=== PATIENT | female | born 1970 | race American Indian/Alaskan Native ===

== ENCOUNTER 2020-02-15 09:11 | Emergency (ER) | payer MEDICAID, OTHER ==
[2020-02-15] MEDS ORDERED: METOCLOPRAMIDE 10 MG/2 ML INJ IV ONE (09:50)
[2020-02-15] MEDS ORDERED: SODIUM CHLORIDE 0.9% 1000 ML 1,000 ML IV ONE (09:50)
[2020-02-15] MEDS ORDERED: PANTOPRAZOLE 40 MG INJ IV ONE (09:50)
[2020-02-15] MEDS ORDERED: KETOROLAC 30 MG/1 ML INJ IV ONE (09:50)
--- NOTE | 2020-02-15 10:00 | Emergency Department Report ---
ED Abdominal Pain HPI - General Chief Complaint: Abdominal Pain Stated Complaint: SOB Time Seen by Provider: 02/15/20 09:36 Source: patient Mode of arrival: Ambulatory Limitations: Other - History of Present Illness Initial Comments: This is a 50-year-old female with a history of diabetes supposed to be taking metformin twice a day who presents the ED complaining of left upper abdominal cramping aching type pain and vomiting x2 weeks. Patient states symptoms started about 2 weeks ago. Patient states she usually vomits daily sometimes once a day or several times a day. Patient states that symptoms sometimes worsen with food. She states that she is able to eat but most times may vomit after a couple of hours of eating. Patient also states that she is being a B week due to not being able to keep foods down. Patient states she is worse with taking metformin twice a day but does not really take it like she should. Patient states she has an appointment next month with her primary care physician for her new diagnosis of hypertension. She denies fever/chills, chest pain, diarrhea, MD Complaint: abdominal pain -: week(s) (2) Location: [facility] Migration to: no migration Severity: moderate Severity scale (0 -10): 6 Quality: aching Worsens With: eating, vomiting Associated Symptoms: nausea, vomiting. denies: diarrhea, fever, dysuria - Related Data Home Medications Medication Instructions Recorded Confirmed Last Taken Sitagliptin Phosphate [Januvia] 100 mg PO QDAY 07/16/19 07/16/19 Unknown Previous Rx's Medication Instructions Recorded Last Taken Type AtorvaSTATin [Lipitor] 40 mg PO QHS #30 tablet 07/18/19 Unknown Rx Glimepiride [Amaryl] 2 mg PO QDDIAB #30 tablet 07/18/19 Unknown Rx Insulin NPH/Regular [NovoLIN 70/30] 5 unit SQ BIDDIAB #10 ml 07/18/19 Unknown Rx Meclizine [Antivert] 12.5 mg PO Q12H PRN #10 tablet 07/18/19 Unknown Rx amLODIPine 10 mg PO QDAY #30 tablet 07/18/19 Unknown Rx carvediloL [Coreg] 12.5 mg PO BID #60 tablet 07/18/19 Unknown Rx Famotidine [Pepcid] 20 mg PO BID #30 tablet 02/15/20 Unknown Rx Metoclopramide [Reglan] 10 mg PO TID #30 tab 02/15/20 Unknown Rx Nitrofurantoin Rhea/M-Cryst 100 mg PO Q12HR #10 capsule 02/15/20 Unknown Rx [Macrobid CAP] metFORMIN XR [Glucophage XR] 1,000 mg PO QDDIAB #60 tablet 02/15/20 Unknown Rx traMADoL [Ultram 50 MG tab] 50 mg PO Q6HR PRN #20 tablet 02/15/20 Unknown Rx Allergies Allergy/AdvReac Type Severity Reaction Status Date / Time No Known Allergies Allergy Verified 02/15/20 09:12 ED Review of Systems ROS: Stated complaint: SOB Other details as noted in HPI Comment: All other systems reviewed and negative ED Past Medical Hx - Past Medical History Hx Hypertension: Yes (newly diagnosed this admission.) Hx Diabetes: Yes Hx Renal Disease: No Additional medical history: blind - Surgical History Additional Surgical History: x 2 - Social History Smoking Status: Never Smoker Substance Use Type: None - Medications Home Medications: Home Medications Medication Instructions Recorded Confirmed Last Taken Type Sitagliptin Phosphate [Januvia] 100 mg PO QDAY 07/16/19 07/16/19 Unknown History AtorvaSTATin [Lipitor] 40 mg PO QHS #30 tablet 07/18/19 Unknown Rx Glimepiride [Amaryl] 2 mg PO QDDIAB #30 tablet 07/18/19 Unknown Rx Insulin NPH/Regular [NovoLIN 70/30] 5 unit SQ BIDDIAB #10 ml 07/18/19 Unknown Rx Meclizine [Antivert] 12.5 mg PO Q12H PRN #10 tablet 07/18/19 Unknown Rx amLODIPine 10 mg PO QDAY #30 tablet 07/18/19 Unknown Rx carvediloL [Coreg] 12.5 mg PO BID #60 tablet 07/18/19 Unknown Rx Famotidine [Pepcid] 20 mg PO BID #30 tablet 02/15/20 Unknown Rx Metoclopramide [Reglan] 10 mg PO TID #30 tab 02/15/20 Unknown Rx Nitrofurantoin Rhea/M-Cryst 100 mg PO Q12HR #10 capsule 02/15/20 Unknown Rx [Macrobid CAP] metFORMIN XR [Glucophage XR] 1,000 mg PO QDDIAB #60 tablet 02/15/20 Unknown Rx traMADoL [Ultram 50 MG tab] 50 mg PO Q6HR PRN #20 tablet 02/15/20 Unknown Rx ED Physical Exam - General Limitations: Other General appearance: alert, in no apparent distress - Head Head exam: Present: atraumatic, normocephalic - Eye Eye exam: Present: normal appearance - ENT ENT exam: Present: mucous membranes moist - Neck Neck exam: Present: normal inspection - Respiratory Respiratory exam: Present: normal lung sounds bilaterally. Absent: respiratory distress - Cardiovascular Cardiovascular Exam: Present: regular rate, normal rhythm. Absent: systolic murmur, diastolic murmur, rubs, gallop - GI/Abdominal GI/Abdominal exam: Present: soft, tenderness (To palpation of the left upper quadrant), normal bowel sounds, other (Patient was nontender in all other quadrant). Absent: distended, rigid, organomegaly, mass, bruit, pulsatile mass - Expanded GI/Abdominal Exam Expanded GI/Abdominal exam: Absent: psoas sign, obturator sign - Extremities Exam Extremities exam: Present: normal inspection - Back Exam Back exam: Present: normal inspection - Neurological Exam Neurological exam: Present: alert, oriented X3 - Psychiatric Psychiatric exam: Present: normal affect, normal mood - Skin Skin exam: Present: warm, dry, intact, normal color. Absent: rash ED Course Vital Signs 02/15/20 02/15/20 09:16 10:16 Temperature 97.5 F L Pulse Rate 109 H Respiratory 18 18 Rate Blood Pressure 150/80 O2 Sat by Pulse 99 Oximetry ED Medical Decision Making - Lab Data Result diagrams: 02/15/20 09:48 02/15/20 09:48 - Radiology Data Radiology results: report reviewed, image reviewed Loc: ED Attending Dr: ULTRASOUND ABDOMEN, COMPLETE INDICATION: Abdominal Pain. COMPARISON: No relevant prior imaging study available. FINDINGS: Pancreas: No significant abnormality. Abdominal Aorta: No significant abnormality. IVC: No significant abnormality. Liver: The liver measures 13.9 cm in length. No significant abnormality. Normal hepatopedal blood flow in the main portal vein. Gallbladder: Multiple gallstones without distention or significant wall thickening. Negative sonographic Castrejon's sign.. Bile ducts: No significant abnormality. Common bile duct measures 4 mm. Right kidney: 9.8 cm in length. No significant abnormality. Left kidney: 10.1 cm in length. No significant abnormality. Spleen: No significant abnormality. Free fluid: None. Additional Findings: None. IMPRESSION: 1. Cholelithiasis without sonographic evidence of acute cholecystitis. Signer Name: Jimenez Matthews MD Signed: 02/15/2020 10:44 AM Workstation Name: [id number] Transcribed By: BERNARD Dictated By: Jimenez Matthews MD Electronically Authenticated By: Jimenez Matthews MD Signed Date/Time: 02/15/20 1044 - Medical Decision Making This 50-year-old female presents with abdominal pain secondary to Patient received pain medication, 1 L of fluids and some antiemetic medications. Abdominal ultrasound shows, see report above. Discussed findings with the patient. All labs within normal limits patient had no leukocytosis or any liver function abnormalities or kidney function abnormalities. Discussed with patient to follow-up with laser engineer in the next 2 to 3 days. Critical care attestation.: If time is entered above; I have spent that time in minutes in the direct care of this critically ill patient, excluding procedure time. ED Disposition Clinical Impression: Cholelithiasis, Abdominal pain Disposition: DC- TO HOME OR SELFCARE Is pt being admited?: No Does the pt Need Aspirin: No Condition: Stable Instructions: Abdominal Pain (ED), Cholelithiasis (ED), Biliary Colic (ED) Additional Instructions: Make sure to follow up with the primary care physician as discussed. Take all your medications as you've been prescribed. If you have any worsening symptoms or develop new symptoms please return to ED immediately. Prescriptions: metFORMIN XR [Glucophage XR] 1,000 mg PO QDDIAB #60 tablet Nitrofurantoin Rhea/M-Cryst [Macrobid CAP] 100 mg PO Q12HR #10 capsule Famotidine [Pepcid] 20 mg PO BID #30 tablet Metoclopramide [Reglan] 10 mg PO TID #30 tab traMADoL [Ultram 50 MG tab] 50 mg PO Q6HR PRN #20 tablet PRN Reason: Pain Referrals: PRIMARY CARE, [Referring] - 3-5 Days [facility] [Provider Group] - 3-5 Days [facility] [Provider Group] - 3-5 Days Forms: Accompanied Note, Work/School Release Form(ED) Time of Disposition: 11:20
[2020-02-15 10:11] LABS: Basophils # (Auto) 0.1 K/mm3 (0.0-0.1); Basophils % (Auto) 0.9 % (0.0-1.8); Eosinophils # (Auto) 0.1 K/mm3 (0.0-0.4); Hematocrit 34.7 % (30.3-42.9); Hemoglobin 11.6 gm/dl (10.1-14.3); Lymphocytes # (Auto) 2.3 K/mm3 (1.2-5.4); Lymphocytes % (Auto) 25.9 % (13.4-35.0); Mean Corpuscular HGB Conc 33 % (30-34); Mean Corpuscular Volume 87 fl (79-97); Monocytes # (Auto) 0.6 K/mm3 (0.0-0.8); Monocytes % (Auto) 6.1 % (0.0-7.3); Platelet Count 199 K/mm3 (140-440); Red Blood Count 3.98 M/mm3 (3.65-5.03); Red Cell Distribution Width 12.4 % (13.2-15.2)
[2020-02-15 10:34] LABS: Bacteria,Urine 4+ /HPF (Negative); Bilirubin,Urine NEG (Negative); Blood,Urine SM (Negative); Color,Urine Yellow (Yellow); Hyaline Casts,Urine 3 /LPF; Mucus,Urine FEW /HPF; Urobilinogen,Urine < 2.0 mg/dL (<2.0)
[2020-02-15 10:41] LABS: Albumin 3.6 g/dL (3.9-5); Calcium 9.9 mg/dL (8.4-10.2)
--- NOTE | 2020-02-15 10:48 | Ultrasound Report ---
ULTRASOUND ABDOMEN, COMPLETE INDICATION: Abdominal Pain. COMPARISON: No relevant prior imaging study available. FINDINGS: Pancreas: No significant abnormality. Abdominal Aorta: No significant abnormality. IVC: No significant abnormality. Liver: The liver measures 13.9 cm in length. No significant abnormality. Normal hepatopedal blood sissy w in the main portal vein. Gallbladder: Multiple gallstones without distention or significant wall thickening. Negative sonograp hic Castrejon's sign.. Bile ducts: No significant abnormality. Common bile duct measures 4 mm. Right kidney: 9.8 cm in length. No significant abnormality. Left kidney: 10.1 cm in length. No significant abnormality. Spleen: No significant abnormality. Free fluid: None. Additional Findings: None. IMPRESSION: 1. Cholelithiasis without sonographic evidence of acute cholecystitis. Signer Name: Jimenez Matthews MD Signed: 02/15/2020 10:44 AM Workstation Name: [id number]
[2020-02-15 11:39] VITALS: BP 132/70
== END 2020-02-15 11:39 | disposition home or self-care (01) ==
LOC: ED 09:11
DX: K80.20 Calculus of gallbladder without cholecystitis without obstruction (principal); R10.12 Left upper quadrant pain; R11.2 Nausea with vomiting, unspecified; I10 Essential (primary) hypertension; E11.9 Type 2 diabetes mellitus without complications; Z98.890 Other specified postprocedural states; Z79.4 Long term (current) use of insulin; Z79.899 Other long term (current) drug therapy
CPT/HCPCS: 36415; 76700; 80053; 81001; 82150; 83690; 84702; 85025; 87086; 96361; 96374; 96375; 99284; C9113; J1885; J2765; J7030

== ENCOUNTER 2020-03-22 09:35 | Emergency (ER) | payer MEDICAID ==
[2020-03-22] MEDS ORDERED: SODIUM CHLORIDE 0.9% 1000 ML 1,000 ML IV ONE (10:32)
[2020-03-22] MEDS ORDERED: DICYCLOMINE 20 MG/2 ML INJ IM ONE (10:32)
--- NOTE | 2020-03-22 10:53 | Emergency Department Report ---
ED General Adult HPI - General Chief complaint: Upper Respiratory Infection Stated complaint: COUGH/DIARRHEA PUI?: Yes Time Seen by Provider: 03/22/20 10:19 Source: patient Mode of arrival: Ambulatory Limitations: No Limitations - History of Present Illness Initial comments: Patient is a 50-year-old F Lithuanian female who is presenting with multiple complaints. Patient states that she has had a cough with mild shortness of maite ath and decreased exercise tolerance for approximately 2 weeks. States the cough is dry and nonproductive. States that she has not had a fever sore throat neck stiffness or body aches. Patient also is stating that she has had also 2 weeks of diarrhea. Patient states she is blind so she does not know whether there is been blood in her stool. She has crampy colicky diffuse abdominal pain especially before having the bowel movements. She denies any near syncope with standing. Lastly the patient states for approximately a week she has been having some weakness to her right lower extremity. She states that when she stands she has to lean more on her left leg in order to get up. She has d ifficulty with walking is been walking with a limp. 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 She has a history of hypertension. Patient denies any other focal neurological symptoms. - Related Data Home Medications Medication Instructions Recorded Confirmed Last Taken Sitagliptin Phosphate [Januvia] 100 mg PO QDAY 07/16/19 07/16/19 Unknown Previous Rx's Medication Instructions Recorded Last Taken Type AtorvaSTATin [Lipitor] 40 mg PO QHS #30 tablet 07/18/19 Unknown Rx Glimepiride [Amaryl] 2 mg PO QDDIAB #30 tablet 07/18/19 Unknown Rx Insulin NPH/Regular [NovoLIN 70/30] 5 unit SQ BIDDIAB #10 ml 07/18/19 Unknown Rx Meclizine [Antivert] 12.5 mg PO Q12H PRN #10 tablet 07/18/19 Unknown Rx amLODIPine 10 mg PO QDAY #30 tablet 07/18/19 Unknown Rx carvediloL [Coreg] 12.5 mg PO BID #60 tablet 07/18/19 Unknown Rx Famotidine [Pepcid] 20 mg PO BID #30 tablet 02/15/20 Unknown Rx Metoclopramide [Reglan] 10 mg PO TID #30 tab 02/15/20 Unknown Rx Nitrofurantoin Dooly/M-Cryst 100 mg PO Q12HR #10 capsule 02/15/20 Unknown Rx [Macrobid CAP] metFORMIN XR [Glucophage XR] 1,000 mg PO QDDIAB #60 tablet 02/15/20 Unknown Rx traMADoL [Ultram 50 MG tab] 50 mg PO Q6HR PRN #20 tablet 02/15/20 Unknown Rx Dicyclomine [Bentyl] 10 mg PO QID #10 capsule 03/22/20 Unknown Rx Diphenoxylate/Atropine [Lomotil] 1 tab PO Q4H PRN #10 tablet 03/22/20 Unknown Rx Furosemide [Lasix] 20 mg PO QDAY #14 tablet 03/22/20 Unknown Rx Allergies Allergy/AdvReac Type Severity Reaction Status Date / Time No Known Allergies Allergy Verified 02/15/20 09:12 ED Review of Systems ROS: Stated complaint: COUGH/DIARRHEA Other details as noted in HPI Comment: All other systems reviewed and negative ED Past Medical Hx - Past Medical History Previous Medical History?: Yes Hx Hypertension: Yes (newly diagnosed this admission.) Hx Diabetes: Yes Hx Renal Disease: No Additional medical history: blind - Surgical History Past Surgical History?: Yes Additional Surgical History: x 2 - Social History Smoking Status: Never Smoker Substance Use Type: None - Medications Home Medications: Home Medications Medication Instructions Recorded Confirmed Last Taken Type Sitagliptin Phosphate [Januvia] 100 mg PO QDAY 07/16/19 07/16/19 Unknown History AtorvaSTATin [Lipitor] 40 mg PO QHS #30 tablet 07/18/19 Unknown Rx Glimepiride [Amaryl] 2 mg PO QDDIAB #30 tablet 07/18/19 Unknown Rx Insulin NPH/Regular [NovoLIN 70/30] 5 unit SQ BIDDIAB #10 ml 07/18/19 Unknown Rx Meclizine [Antivert] 12.5 mg PO Q12H PRN #10 tablet 07/18/19 Unknown Rx amLODIPine 10 mg PO QDAY #30 tablet 07/18/19 Unknown Rx carvediloL [Coreg] 12.5 mg PO BID #60 tablet 07/18/19 Unknown Rx Famotidine [Pepcid] 20 mg PO BID #30 tablet 02/15/20 Unknown Rx Metoclopramide [Reglan] 10 mg PO TID #30 tab 02/15/20 Unknown Rx Nitrofurantoin Dooly/M-Cryst 100 mg PO Q12HR #10 capsule 02/15/20 Unknown Rx [Macrobid CAP] metFORMIN XR [Glucophage XR] 1,000 mg PO QDDIAB #60 tablet 02/15/20 Unknown Rx traMADoL [Ultram 50 MG tab] 50 mg PO Q6HR PRN #20 tablet 02/15/20 Unknown Rx Dicyclomine [Bentyl] 10 mg PO QID #10 capsule 03/22/20 Unknown Rx Diphenoxylate/Atropine [Lomotil] 1 tab PO Q4H PRN #10 tablet 03/22/20 Unknown Rx Furosemide [Lasix] 20 mg PO QDAY #14 tablet 03/22/20 Unknown Rx ED Physical Exam - General Limitations: No Limitations General appearance: alert, in no apparent distress - Head Head exam: Present: atraumatic, normocephalic - Eye Eye exam: Present: normal appearance, PERRL, EOMI - ENT ENT exam: Present: normal orophraynx, mucous membranes moist - Neck Neck exam: Present: normal inspection - Respiratory Respiratory exam: Present: normal lung sounds bilaterally. Absent: respiratory distress, wheezes, rales, rhonchi - Cardiovascular Cardiovascular Exam: Present: regular rate, normal rhythm, normal heart sounds. Absent: systolic murmur, diastolic murmur, rubs, gallop - GI/Abdominal GI/Abdominal exam: Present: soft, normal bowel sounds, hyperactive bowel sounds. Absent: distended, tenderness, guarding, rebound, rigid - Extremities Exam Extremities exam: Present: normal inspection - Back Exam Back exam: Present: normal inspection - Neurological Exam Neurological exam: Present: alert, oriented X3 - Psychiatric Psychiatric exam: Present: normal affect, normal mood - Skin Skin exam: Present: warm, dry, intact, normal color. Absent: rash ED Course Vital Signs 03/22/20 03/22/20 03/22/20 09:38 09:39 10:16 Temperature 97.9 F 97.9 F Pulse Rate 98 H Respiratory 18 18 Rate Blood Pressure 155/77 155/77 O2 Sat by Pulse 97 97 Oximetry 03/22/20 03/22/20 03/22/20 10:30 10:46 11:22 Temperature Pulse Rate Respiratory Rate Blood Pressure 148/75 144/82 124/50 O2 Sat by Pulse 98 96 100 Oximetry 03/22/20 03/22/20 03/22/20 11:30 11:46 12:15 Temperature Pulse Rate Respiratory Rate Blood Pressure 144/73 145/71 O2 Sat by Pulse 95 98 96 Oximetry 03/22/20 03/22/20 03/22/20 12:51 13:00 13:16 Temperature Pulse Rate Respiratory Rate Blood Pressure 138/67 139/74 145/79 O2 Sat by Pulse 89 94 94 Oximetry 03/22/20 13:30 Temperature Pulse Rate Respiratory Rate Blood Pressure 140/70 O2 Sat by Pulse 96 Oximetry ED Medical Decision Making - Lab Data Result diagrams: 03/22/20 11:33 03/22/20 11:33 - Radiology Data [address] [address] XRay Report Signed Patient: VIKTORIYA MICHAEL MR#: [id number] : 1970 Acct:[id number] Age/Sex: 50 / F ADM Date: 03/22/20 Loc: ED Attending Dr: Ordering Physician: EMEKA WEI MD Date of Service: 03/22/20 Procedure(s): XR chest routine 2V Accession Number(s): [id number] cc: EMEKA WEI MD Fluoro Time In Minutes: CHEST 2 VIEWS INDICATION / CLINICAL INFORMATION: cough 2 weeks. COMPARISON: None available. FINDINGS: SUPPORT DEVICES: None. HEART / MEDIASTINUM: No significant abnormality. LUNGS / PLEURA: No significant pulmonary or pleural abnormality. No pneumothorax. ADDITIONAL FINDINGS: No significant additional findings. IMPRESSION: No significant abnormality Signer Name: James Kemp MD FACR Signed: 03/22/2020 11:23 AM Workstation Name: [id number] [address] [address] Cat Scan Report Signed Patient: VIKTORIYA MICHAEL MR#: [id number] : 1970 Acct:[id number] Age/Sex: 50 / F ADM Date: 03/22/20 Loc: ED Attending Dr: Ordering Physician: EMEKA WEI MD Date of Service: 03/22/20 Procedure(s): CT head/brain wo con Accession Number(s): [id number] cc: EMEKA WEI MD CT BRAIN: 03/22/2020 INDICATION / CLINICAL INFORMATION: weakness right leg x1 week. COMPARISON: 07/16/2019 FINDINGS: BRAIN/INTRACRANIAL STRUCTURES: Unenhanced CT images of the brain demonstrates no evidence of acute intracranial abnormality. Ventricles and sulci are normal in size and shape. There is no CT evidence of acute ischemic injury, hemorrhage, or mass. There are no abnormal extra- axial fluid collections. There is been no significant change when compared to 07/16/2019. EXTRACRANIAL STRUCTURES: Unremarkable. IMPRESSION: No acute abnormality. All CT scans at this location are performed using dose reduction to ALARA by means of automated exposure control. 03/22/2020 Signer Name: Praveen Koenig MD Signed: 03/22/2020 1:16 PM Workstation Name: [id number] [facility] [address] [id number] Cat Scan Report Signed Patient: VIKTORIYA MICHAEL MR#: [id number] : 1970 Acct:[id number] Age/Sex: 50 / F ADM Date: 03/22/20 Loc: ED Attending Dr: Ordering Physician: EMEKA WEI MD Date of Service: 03/22/20 Procedure(s): CT abdomen pelvis w con Accession Number(s): [id number] cc: EMEKA WEI MD CT ABDOMEN AND PELVIS WITH CONTRAST INDICATION / CLINICAL INFORMATION: severe diarrhea with abd pain. TECHNIQUE: Axial CT images were obtained through the abdomen and pelvis after IV contrast. All CT scans at this location are performed using CT dose reduction for ALARA by means of automated exposure control. COMPARISON: None available. FINDINGS: LOWER CHEST: Small pleural effusions with compressive atelectasis of portions of the lower lobes. LIVER: No significant abnormality. BILIARY SYSTEM: Cholelithiasis. No wall thickening, abnormal distention or pericholecystic fluid. No biliary dilatation. PANCREAS: No significant abnormality. SPLEEN: No significant abnormality. ADRENALS: No significant abnormality. KIDNEYS and URETERS: No significant abnormality. STOMACH / BOWEL: No significant abnormality. Normal appendix. PERITONEUM: No free fluid. No free air. No fluid collection. LYMPH NODES: No adenopathy. VASCULAR STRUCTURES: No significant abnormality. URINARY BLADDER: Mostly collapsed, limiting evaluation. REPRODUCTIVE ORGANS: An IUD is centrally positioned in the uterus. ADDITIONAL FINDINGS: Mild, diffuse body wall edema. SKELETAL SYSTEM: No significant abnormality. IMPRESSION: 1. Small pleural effusions and mild anasarca. 2. Cholelithiasis. Signer Name: Aron Monteiro MD Signed: 03/22/2020 1:23 PM Workstation Name: [id number] - Medical Decision Making Patient is a 50-year-old F Lithuanian female has had exertional shortness of breath and mild cough which is nonproductive. She denies fever. Chest x-ray was within normal limits and showed no acute process. Looking at the patient's laboratory studies her BNP was significantly elevated. In researching the keyon multani's past medical history in July 2019 she had a echo which showed a EF of 40% and diastolic dysfunction. Patient likely is having some mild transient pulmonary edema only when she exerts herself. At rest the patient is asymptomatic. Patient also wants CT of the abdomen pelvis does show some anasarca and evidence of fluid overload. Patient to be started on low-dose Lasix and was given follow-up with cardiology as an outpatient for echocardiogram. No evidence of COVID-19 was found on her chest x-ray although she has been encouraged to have outpatient testing. Regarding the patient's diarrhea again the anasarca may be causing some bowel irritation leading to her diarrhea she will be started on medications to control this symptom as well. Patient does meet criteria to be discharged home with follow-up of her work-up as an outpatient. Critical care attestation.: If time is entered above; I have spent that time in minutes in the direct care of this critically ill patient, excluding procedure time. ED Disposition Clinical Impression: Enteritis, Weakness Congestive heart failure (CHF) Qualifiers: Heart failure type: diastolic Heart failure chronicity: acute Qualified Code(s): I50.31 - Acute diastolic (congestive) heart failure Disposition: DC-01 TO HOME OR SELFCARE Is pt being admited?: No Does the pt Need Aspirin: No Condition: Stable Instructions: Heart Failure (ED) Additional Instructions: Please follow-up with cardiology. He will need another echocardiogram to see if your ejection fraction has decreased. In July 2019 your ejection fraction was 40 to 45%. Normal would be greater than 65%. Please avoid high sodium and canned foods. Please ensure that you are compliant with your blood pressure medications. Prescriptions: Furosemide [Lasix] 20 mg PO QDAY #14 tablet Referrals: CONRADO OCONNOR MD [Staff Physician] - 3-5 Days ROBERT CABAN MD [Staff Physician] - 3-5 Days Time of Disposition: 13:58
--- NOTE | 2020-03-22 11:27 | XRay Report ---
CHEST 2 VIEWS INDICATION / CLINICAL INFORMATION: cough 2 weeks. COMPARISON: None available. FINDINGS: SUPPORT DEVICES: None. HEART / MEDIASTINUM: No significant abnormality. LUNGS / PLEURA: No significant pulmonary or pleural abnormality. No pneumothorax. ADDITIONAL FINDINGS: No significant additional findings. IMPRESSION: No significant abnormality Signer Name: James Kemp MD FACR Signed: 03/22/2020 11:23 AM Workstation Name: [email or web address]
[2020-03-22 11:56] LABS: Basophils % (Auto) 0.6 % (0.0-1.8); Eosinophils # (Auto) 0.1 K/mm3 (0.0-0.4); Eosinophils % (Auto) 2.2 % (0.0-4.3); Hematocrit 29.8 % (30.3-42.9); Hemoglobin 9.5 gm/dl (10.1-14.3); INR 1.19 (0.87-1.13); Lymphocytes # (Auto) 1.6 K/mm3 (1.2-5.4); Lymphocytes % (Auto) 37.5 % (13.4-35.0); Mean Corpuscular HGB Conc 32 % (30-34); Mean Corpuscular Volume 87 fl (79-97); Monocytes # (Auto) 0.5 K/mm3 (0.0-0.8); Monocytes % (Auto) 10.9 % (0.0-7.3); Platelet Count 136 K/mm3 (140-440); Red Blood Count 3.44 M/mm3 (3.65-5.03); Red Cell Distribution Width 13.2 % (13.2-15.2)
[2020-03-22 12:02] LABS: Partial Thromboplastin Time 28.2 Sec. (24.2-36.6)
[2020-03-22 12:08] LABS: Albumin 3.2 g/dL (3.9-5); Calcium 9.2 mg/dL (8.4-10.2)
--- NOTE | 2020-03-22 13:20 | Cat Scan Report ---
CT BRAIN: 03/22/2020 INDICATION / CLINICAL INFORMATION: weakness right leg x1 week. COMPARISON: 07/16/2019 FINDINGS: BRAIN/INTRACRANIAL STRUCTURES: Unenhanced CT images of the brain demonstrates no evidence of acute in tracranial abnormality. Ventricles and sulci are normal in size and shape. There is no CT evidence of acute ischemic injury, hemorrhage, or mass. There are no abnormal extra-ax ial fluid collections. There is been no significant change when compared to 07/16/2019. EXTRACRANIAL STRUCTURES: Unremarkable. IMPRESSION: No acute abnormality. All CT scans at this location are performed using dose reduction to ALARA by means of automated expos ure control. 03/22/2020 Signer Name: Praveen Koenig MD Signed: 03/22/2020 1:16 PM Workstation Name: [id number]
[2020-03-22 13:24] LABS: Bacteria,Urine 1+ /HPF (Negative); Bilirubin,Urine NEG (Negative); Blood,Urine SM (Negative); Color,Urine Yellow (Yellow); Mucus,Urine FEW /HPF; Urobilinogen,Urine < 2.0 mg/dL (<2.0)
--- NOTE | 2020-03-22 13:27 | Cat Scan Report ---
CT ABDOMEN AND PELVIS WITH CONTRAST INDICATION / CLINICAL INFORMATION: severe diarrhea with abd pain. TECHNIQUE: Axial CT images were obtained through the abdomen and pelvis after IV contrast. All CT scans at this location are performed using CT dose reduction for ALARA by means of automated exposure control. COMPARISON: None available. FINDINGS: LOWER CHEST: Small pleural effusions with compressive atelectasis of portions of the lower lobes. LIVER: No significant abnormality. BILIARY SYSTEM: Cholelithiasis. No wall thickening, abnormal distention or pericholecystic fluid. No biliary dilatation. PANCREAS: No significant abnormality. SPLEEN: No significant abnormality. ADRENALS: No significant abnormality. KIDNEYS and URETERS: No significant abnormality. STOMACH / BOWEL: No significant abnormality. Normal appendix. PERITONEUM: No free fluid. No free air. No fluid collection. LYMPH NODES: No adenopathy. VASCULAR STRUCTURES: No significant abnormality. URINARY BLADDER: Mostly collapsed, limiting evaluation. REPRODUCTIVE ORGANS: An IUD is centrally positioned in the uterus. ADDITIONAL FINDINGS: Mild, diffuse body wall edema. SKELETAL SYSTEM: No significant abnormality. IMPRESSION: 1. Small pleural effusions and mild anasarca. 2. Cholelithiasis. Signer Name: Aron Monteiro MD Signed: 03/22/2020 1:23 PM Workstation Name: [id number]
[2020-03-22 13:42] VITALS: BP 140/70
== END 2020-03-22 14:17 | disposition home or self-care (01) ==
LOC: ED 09:35
DX: I11.0 Hypertensive heart disease with heart failure (principal); I50.9 Heart failure, unspecified; K52.9 Noninfective gastroenteritis and colitis, unspecified; R53.1 Weakness; E11.9 Type 2 diabetes mellitus without complications; Z98.890 Other specified postprocedural states; Z79.4 Long term (current) use of insulin; Z79.84 Long term (current) use of oral hypoglycemic drugs; Z79.899 Other long term (current) drug therapy
CPT/HCPCS: 36415; 70450; 71046; 74177; 80053; 81001; 83690; 83880; 85025; 85610; 85730; 96360; 96372; 99284; J0500; J7030; Q9967